=== PATIENT | female | born 1955 | race Caucasian/White ===

== ENCOUNTER → 2016-11-02 | Outpatient (CLI) | payer OTHER ==
--- NOTE | 2016-11-02 16:29 | DX ---
Bilateral ankles, three views. History: Instability, swelling, pain. Findings: Left ankle: The mortise is intact. No fracture or soft tissue swelling. No joint effusion. Right ankle: Mortise is intact. No fracture or joint effusion. No soft tissue swelling. Impression: Negative bilateral ankle series.
--- NOTE | 2016-11-02 16:56 | DX ---
Bilateral feet, 3 views each side.. History: BILATERAL BUNIONS. R/O ARTHRITIS, PAINFUL ANKLES B/L WITH INSTABILITY AND SWELLING. Comparison examination:none available Findings: Left foot: Severe hallux valgus, measuring 34 degrees, with associated marked joint space narrowing a t the first MTP joint and lateral subluxation of the sesamoids. Joint spaces are otherwise intact. Right foot: Again demonstrated is advanced hallux valgus, measuring 34 degrees, with first MTP osteoa rthritis and lateral sesamoid subluxation. Exam otherwise normal. Impression: Bilateral severe hallux valgus and secondary first MTP osteoarthritis.
== END ==
LOC: BMCIMAGING 15:27
PROVIDERS: ATTEND Podiatrist Foot & Ankle Surgery
DX: M25.571 Pain in right ankle and joints of right foot (principal); M25.572 Pain in left ankle and joints of left foot; M20.11 Hallux valgus (acquired), right foot; M20.12 Hallux valgus (acquired), left foot; M19.071 Primary osteoarthritis, right ankle and foot; M19.072 Primary osteoarthritis, left ankle and foot

== ENCOUNTER 2017-04-10 12:45 | Day surgery (SDC) | payer OTHER ==
[2017-04-10] MEDS ORDERED: LIDOCAINE 1% 2 ML INJ ONE (13:24)
[2017-04-10] MEDS ORDERED: LR 1,000 ML IV ONE (13:34)
--- NOTE | 2017-04-10 14:10 | PDANEPAE ---
ANE History of Present Illness Bunion ANE Past Medical History - Cardiovascular History Hx Hypertension: No Hx Arrhythmias: No Hx Chest Pain: No Hx Coronary Artery / Peripheral Vascular Disease: Yes Hx CHF / Valvular Disease: No Hx Palpitations: No Cardiovascular History Comment: high chol - Pulmonary History Hx COPD: No Hx Asthma/Reactive Airway Disease: No Hx Recent Upper Respiratory Infection: No Hx Oxygen in Use at Home: No Hx Sleep Apnea: No Sleep Apnea Screening Result - Last Documented: Negative - Neurologic History Hx Cerebrovascular Accident: No Hx Seizures: No Hx Dementia: No - Endocrine History Hx Diabetes: No Endocrine History Comment: hypothyroidism - Renal History Hx Renal Disorders: Yes Renal History Comment: frequency and urgency - Liver History Hx Hepatic Disorders: No - Neurological & Psychiatric Hx Hx Neurological and Psychiatric Disorders: Yes Neurological / Psychiatric History Comment: anxiety. bipolar - Cancer History Hx Cancer: No - Congenital Disorder History Hx Congenital Disorders: No - GI History Hx Gastrointestinal Disorders: No Gastrointestinal History Comment: hx of colonoscopies - Other Health History Other Health History: wears glasses- probably will not wear glasses. surgical wound to left foot- dr schaffer checking weekly - Chronic Pain History Chronic Pain: Yes (bilateral feet) - Surgical History Prior Surgeries: 02/07/17 left foot and ankle surgery with Dr. Schaffer at [facility]. tonsillectomy at 6 or 7 yr's old. eye surgery at 21 yrs old ANE Review of Systems - Exercise capacity METS (RN): 4 METS - Systems Cardiac: Reports: no symptoms ANE Patient History - Allergies Allergies/Adverse Reactions: adhesive tape Allergy (Verified 03/22/17 15:13) Rash codeine Allergy (Verified 03/22/17 15:13) Unknown - Home Medications Home medications: home medication list seen and reviewed Home Medications: Divalproex ER 03/22/17 [Last Taken 04/09/17] Estrace Vaginal (*) 03/22/17 [Last Taken Unknown] GELNIQUE 03/22/17 [Last Taken Unknown] Herbals/Supplements -Info Only 03/22/17 [Last Taken Unknown] Lovastatin 03/22/17 [Last Taken 04/10/17 0800] Myrbetriq 03/22/17 [Last Taken Unknown] Synthroid 03/22/17 [Last Taken Unknown] Aricept 04/10/17 [Last Taken 04/10/17 10] - NPO status NPO Since - Liquids (Date): 04/10/17 NPO Since - Liquids (Time): 09:00 NPO Since - Solids (Date): 04/09/17 NPO Since - Solids (Time): 22:00 - Smoking Hx Smoking Status: Never smoked - Family Anes Hx Family Hx Anesthesia Complications: none ANE Labs/Vital Signs - Vital Signs Blood Pressure: 146/94 Heart Rate: 70 Respiratory Rate: 14 O2 Sat (%): 98 Height: 160.02 cm Weight: 68.039 kg ANE Physical Exam - Airway Neck exam: FROM Mallampati Score: Class 1 Mouth exam: normal dental/mouth exam - Pulmonary Pulmonary: no respiratory distress - Cardiovascular Cardiovascular: regular rate and rhythym - ASA Status ASA Status: II ANE Anesthesia Plan Anesthesia Plan: GA w LMA Regional Anesthesia: popliteal SNB
[2017-04-10] MEDS ORDERED: PROPOFOL 200 MG/20 ML VIAL ONE (14:24)
[2017-04-10] MEDS ORDERED: fentaNYL 100 MCG/2 ML INJ ONE ×3 (14:24→17:25)
[2017-04-10] MEDS ORDERED: ceFAZolin 2 GM/DEXTROSE 100 ML IV ONE (15:03)
--- NOTE | 2017-04-10 15:10 | PDGENHP ---
History & Physical Chief Complaint: Painful right bunion, painful lipoma History of Present Illness: Many years of painful and progressive right bunion with progressive hallux valgus. Increasing fatty lesion on lateral right ankle. Patient has not improved despite conservative treatment measures. After risks and benefits were discussed, she elected to proceed with the above surgery Pertinent Past, Social, Family History: Left bunion correction surgery Relevant Physical Exam: Prominent bunion, hallux valgus with 2nd toe overlap, tender to palpation. Skin intact. Good pulses. Lateral ankle tender lipoma, mobile, and without discloration. Cardiorespiratory Assessment: Patient takes non-labored breaths without wheezing , pulse regular rate and rhythm
[2017-04-10] MEDS ORDERED: MIDAZOLAM 2 MG/2 ML VIAL IVP ONE (15:16)
[2017-04-10] MEDS ORDERED: MIDAZOLAM 2 MG/2 ML VIAL ONE (15:17)
[2017-04-10] MEDS ORDERED: PROPOFOL/EMULSION 500 MG/50 ML BOTTLE IV ONE ×2 (15:24→16:36)
[2017-04-10] MEDS ORDERED: DEXAMETHASONE 4 MG/ML VIAL ONE (15:46)
[2017-04-10] MEDS ORDERED: ONDANSETRON 4 MG/2 ML VIAL ONE (15:49)
[2017-04-10] MEDS ORDERED: BUPIVACAINE 0.25% 30 ML SDV ONE (15:56)
[2017-04-10] MEDS ORDERED: PROMETHAZINE HCL 25 MG/ML INJ IVP PRN (16:06)
[2017-04-10] MEDS ORDERED: HYDROmorphONE/DILAUDID 1 MG/ML SYR IVP PRN (16:06)
[2017-04-10] MEDS ORDERED: fentaNYL 100 MCG/2 ML INJ IVP PRN (16:06)
[2017-04-10] MEDS ORDERED: NALOXONE HCL 0.4 MG/ML INJ IVP PRN (16:06)
--- NOTE | 2017-04-10 17:39 | POSTOPPROG ---
Post Op Note Date of Operation: 04/10/17 Surgeon: Xavi Schaffer Mapping Supervisor: None Pre-op Diagnosis: Right bunion, lipoma Post-op Diagnosis: same Indication: as above Procedure: Right modified Gibbons bunionectomy, MT osteotomy, removal lipoma Findings: Bunion, Lipoma Inf/Abcess present in the surg proc area at time of surgery?: No EBL: Minimal Complications: None Specimen(s): Lipoma right lateral ankle
--- NOTE | 2017-04-10 17:43 | POSTANESTH ---
Post Anesthetic Evaluation Cardiovascular Status: Normal, Stable Respiratory Status: Normal, Stable Level of Consciousness/Mental Status: Can Participate in Eval Pain Control: Adequate, Prn Tx Ordered Nausea/Vomiting Control: Adequate, Prn Tx Ordered Complications Possibly Related to Anesthesia: None Noted
[2017-04-10 17:50] VITALS: PULSE 57
[2017-04-10] MEDS ORDERED: PROMETHAZINE HCL 25 MG/ML INJ ONE (18:11)
[2017-04-10 18:23] VITALS: RESP 13
[2017-04-10 20:57] VITALS: TEMP 96.8
[2017-04-10 21:05] VITALS: BP 120/78; O2SAT 90
--- NOTE | 2017-04-11 09:54 | GOP ---
[f rep st] OPERATIVE REPORT DATE OF OPERATION: 04/10/2017 SURGEON: Xavi Schaffer MD MACHINE PRESSER: None. ANESTHESIA: Regional and general. PREOPERATIVE DIAGNOSIS: 1. Right hallux valgus. 2. Right bunion. 3. Right lateral ankle lipoma. POSTOPERATIVE DIAGNOSIS: 1. Right hallux valgus. 2. Right bunion. 3. Right lateral ankle lipoma.\E\. PROCEDURE PERFORMED: 1. Right modified Gibbons bunionectomy. 2. Right proximal opening wedge osteotomy, 1st metatarsal. 3. Removal of symptomatic lipoma, right lateral ankle. 4. Intraoperative use of fluoroscopy. 5. Application of regional anesthetic, right ankle. FINDINGS: ESTIMATED BLOOD LOSS: Minimal. INDICATIONS: The patient is a pleasant, 61-year-old female, who previously underwent a successful b unionectomy on the left foot. She has had a progressive and symptomatic bunion on the right foot as well as a painful lipoma on the lateral ankle, which was irritating the sural nerve. She had faile d to improve, despite conservative management. We discussed the risks, benefits, and alternatives t o the above operation in detail with the patient . In particular, she was made aware that she may d evelop numbness distal to the lipoma due to its adjacency to the sural nerve. In addition, there ar e risks of numbness on the medial foot, wound complications, infection, nonunion, recurrence of the bunion, etc. Despite these risks, the patient elected to proceed. DESCRIPTION OF PROCEDURE: The patient was identified in the preoperative holding area. The right f oot was marked. She was greeted Anesthesia staff, who administered a popliteal fossa block. [facility] that I administer a block at the level of the ankle in the operating room t o block the saphenous nerve. At this point, informed consent was obtained and the patient was taken to the OR suite, and placed in a supine position on the OR table. General anesthesia was induced. A tourniquet was placed on the right calf. The right ankle and foot were prepped and draped in the usual sterile fashion. After Esmarch exsanguination, the tourniquet was inflated to 200 mmHg. We started with the bunionectomy. A longitudinal incision was made in the 1st dorsal webspace. We bluntly dissected down to the joint capsule. The abductor hallucis tendon was identified and releas ed from its insertion on the fibular sesamoid. The sesamoid metatarsal ligament was released and thi s allowed us to mobilize the sesamoid to reposition in toward the plantar aspect of the metatarsal. We then performed a pie crusting of the lateral capsule. This allowed full correction of the valgu s angle to neutral and even 10 degrees of varus. We then turned our attention to the medial foot. A longitudinal incision was made over the medial e minence, extending proximally to the 1st tarsometatarsal joint line. We bluntly dissected down to t he joint capsule and periosteum. We identified the dorsal medial cutaneous branch nerve. This was quite flattened and injected around the medial eminence. We carefully performed a tenolysis, mobili zing the nerve and retracted this dorsally. We carefully protected the nerve throughout the procedu re; however, it was quite flattened and injected, and unhealthy appearing at the level of the medial eminence. At this point, having exposed the joint capsule, a Y-V capsulotomy was performed. The medial eminen ce was exposed. Under fluoroscopic visualization, a sagittal saw was used to remove the medial sandra ence. This was passed off to the back table for later application in her bone graft. We used fluor oscopy to confirm the appropriate amount of resection. We used a rongeur to smooth the edges. We m obilized the capsule and noted full correction of the hallux valgus with a few degrees of varus. Th is also corrected the position of the sesamoids. We then turned our attention to the 1st metatarsal. We made a longitudinal incision in the proximal aspect of the metatarsal through the periosteum. We exposed the metatarsal bone. Under fluoroscop ic visualization, an osteotomy was performed, leaving the lateral cortex intact. We carefully distr acted the medial bone, correcting the intermetatarsal angle. We applied a size 5 BOW plate (this wa s the same size on the contralateral foot), and this corrected the intermetatarsal angle nicely. We placed nonlocking screws, first distally and proximally, and then locking screws distally and proxi bernadette. This resulted in a stable fixation at the metatarsal. At this point, on the back table, we used a rongeur to prepare a bone graft from the medial eminence . This was carefully applied into the defect, filling the defect with bone. At this point, we confirmed the position of the osteotomy on the plate. We confirmed excellent david on through the metatarsophalangeal joint with good balance. The sesamoids were well positioned. We proceeded to repair the periosteum over the plate first and then the periosteum distally at the cap sulotomy. We removed the excess of the joint capsule and then closed the Y-V portion of the capsulo kenny. This resulted in a good balance to the toe with good correction of the bunion and the hallux valgus angle and again, good range of motion through the MTP joint. We used great care to avoid inj ury to the nerve during closure. These wounds were irrigated and the skin was closed with interrupt ed nylon sutures. At this point, we turned our attention to the lateral aspect of the ankle. There was a prominent fa tty collection posterior to the peroneal tendons which was creating excessive symptoms that had not improved with conservative management. We proceeded to do a longitudinal incision at about the midp ortion of the lipoma. We bluntly dissected, exposing the lipoma. We identified the sural nerve, wh ich passed through the center section of the fatty collection. We carefully protected the sural ner ve and removed the fatty collection posterior and anterior, and sent this to Pathology for analysis. At this point, the lateral ankle area was flattened without the prominent fatty deposit. We irrigat ed the wound and repaired the subcutaneous tissue with 3-0 Monocryl. The skin was closed with nylon . A sterile bolster dressing was applied as was a bunion dressing. We applied the cold therapy uni t, followed by an Ronnell wrap, and a CAM Walker boot was applied. The tourniquet was deflated after 84 minutes. Anesthesia was reversed and the patient was taken to postanesthesia care in stable condit ion. IMPLANTS: [employer] [place] plate with appropriate screws. POSTOPERATIVE PLAN: Patient will be discharged as outpatient. She will be heel-touch weightbearing only on the right side. She will come out of the boot for gentle range of motion, elevation, and i ce. I will see her back in 1 week in my [facility] for wound check and dressing change. We guillermo l obtain simulated weightbearing, 3 views of the foot at that time. She will contact us should any questions or concerns arise. /[id number]/MODL
== END 2017-04-10 20:40 | disposition home or self-care (01) ==
LOC: FSGY 12:45
PROVIDERS: ATTEND Orthopaedic Surgery
PROC: 0LNV0ZZ Release Right Foot Tendon, Open Approach (ICD-10-PCS; principal; 2017-04-10 13:30)
PROC: 0QSN04Z Reposition Right Metatarsal with Internal Fixation Device, Open Approach (ICD-10-PCS; principal; 2017-04-10 13:30)
PROC: 0HBKXZZ Excision of Right Lower Leg Skin, External Approach (ICD-10-PCS; principal; 2017-04-10 13:30)
DX: M20.11 Hallux valgus (acquired), right foot (principal); D17.9 Benign lipomatous neoplasm, unspecified; E78.5 Hyperlipidemia, unspecified; E03.9 Hypothyroidism, unspecified; F41.9 Anxiety disorder, unspecified; F31.9 Bipolar disorder, unspecified
CPT/HCPCS: C1713; J0690; J1100; J2250; J2405; J2550; J2704; J3010

== ENCOUNTER → 2018-02-07 | Outpatient (CLI) | payer OTHER | LOC: FIMAGING 14:05 | PROVIDERS: ATTEND Family Medicine | DX: Z12.31 Encounter for screening mammogram for malignant neoplasm of breast (principal); Z13.820 Encounter for screening for osteoporosis; M85.89 Other specified disorders of bone density and structure, multiple sites; E07.9 Disorder of thyroid, unspecified; Z79.899 Other long term (current) drug therapy; Z78.0 Asymptomatic menopausal state ==

== ENCOUNTER → 2018-03-18 | Outpatient (CLI) | payer OTHER | LOC: FCPNEURO 21:00 | PROVIDERS: ATTEND Psychiatry & Neurology Sleep Medicine | DX: G47.33 Obstructive sleep apnea (adult) (pediatric) (principal) ==